=== PATIENT | female | born 1950 | race Caucasian/White ===

== ENCOUNTER 2022-03-10 02:06 | Emergency (ER) | payer MEDICARE, SELFPAY ==
[2022-03-10 02:12] VITALS: BP 168/77; PULSE 66; RESP 17; TEMP 36.6; O2SAT 97; BMI 19.8
--- NOTE | 2022-03-10 02:22 | ED_ITS ---
HPI - General Adult General Chief complaint: Head Injury Stated complaint: fell and hit head Time Seen by Provider: 03/10/22 02:21 History of Present Illness HPI narrative: 71-year-old woman with no reported medical history visiting her children from [facility]. Apparently had 2 cocktails this evening bend over to hold her dog and then fell backward landing on her head and she has approximately 4 cm laceration to the crown of the head. She does have some midline cervical sp ine tenderness to palpation however she says this is chronic although she is slightly intoxicated. She has no other signs of injury a or complaints of musculoskeletal pain. She states that she has otherwise been well with no recent fever, cough, chills, chest pain, palpitations. She is not complaining of headache. Her family notes there was quite a bit of bleeding from the laceration to the crown. Related Data Allergies Allergy/AdvReac Type Severity Reaction Status Date / Time No Known Drug Allergies Allergy Verified 03/10/22 02:29 Review of Systems Review of Systems Narrative: Remainder of complete review of systems is otherwise unremarkable except for that included in the HPI. Patient History Social History Smoking Status: Never smoker Exam Initial Vital Signs Initial Vital Signs: Vital Signs Temperature 97.8 F 03/10/22 02:12 Pulse Rate 66 03/10/22 02:12 Respiratory Rate 17 03/10/22 02:12 Blood Pressure 168/77 H 03/10/22 02:12 Pulse Oximetry 97 03/10/22 02:12 Oxygen Delivery Method 03/10/22 02:12 General: Slightly disheveled but in no acute distress. Able to give a complete and coherent history. Well-nourished well-developed HEENT: Moist mucous membranes, normal sclera with reactive pupils, 6 cm laceration to the crown Neck: No midline cervical tenderness. She does have some chronic tenderness at the occipital insertions bilaterally R espiratory: Lungs are clear to auscultation, no wheezing no rales no rhonchi. Full and symmetrical air movement Cardiac: Regular rate and rhythm no murmurs no bruits Abdomen: Soft, nontender, good bowel tones, no flank pain Skin: Warm and dry, no rashes Neurologic: Grossly neurologically intact with no obvious asymmetries or abnormalities Extremities: No trauma, well perfused Psych: Cooperative, appropriate insight and affect Procedures Laceration Repair Scalp laceration: Time of procedure: 03:21 Site: scalp Size (cm): 6 Description: flap Depth: simple, single layer Local Anesthetic: lidocaine 1% and with epi Amount of anesthesia used (mL): 5 Pre-repair: wound explored and deep structures intact Skin layer closed with: rayray Number of sutures: 6 Course Orders Ordered: ED Orders 03/10/22 02:41 CT head/brain wo con Stat Vital Signs Vital signs: Vital Signs - 8 hr 03/10/22 02:12 Temperature 97.8 F Pulse Rate 66 Respiratory Rate 17 Blood Pressure 168/77 H Pulse Oximetry 97 Oxygen Delivery Method Room Air Medical Decision Making Medical Records Medical records narrative: 71-year-old woman with a mechanical fall landing on the crown of her head, [address] scan is unremarkable. She is feeling well at this time. The laceration was repaired with 6 rayray which she tolerated nicely. She will be returning home to [facility] will ask her to have the rayray out on or about March 20. There is no evidence of additional trauma and she is safe for home discharge Imaging Data CT scan - head: My Impression: No acute intracranial hemorrhage, no subdural or subarachnoid bleeding. MDM Narrative Medical decision making narrative: 71-year-old woman with mechanical fall. Laceration to the crown of her head. CT scan is unremarkable, no other trauma, laceration is repaired with rayray. Questions are answered and she is safe for home discharge Discharge Plan Departure Patient Disposition: Home Clinical Impression: Laceration of scalp Qualifiers: Encounter type: initial encounter Qualified Code(s): S01.01XA - Laceration without foreign body of scalp, initial encounter Instructions: DI for Laceration Repair of the Scalp Activity Restrictions/Additional Instructions: Thank you for coming in this evening Fortunately you did not do any additional damage beside the cut to the top of your scalp. The laceration is 6 cm long and has 6 rayray in it. The rayray will need to come out on or about March 20. You can go to a walk-in clinic or your primary care doctor's office to have them removed. I would recommend getting into the shower before you go to bed this evening. You need to wash off the rest of the blood in the clot that a stocking your hair. Avoid using shampoo tonight because it will be staying. Simply hat the lacerated area dry. You will likely want to use a towel over a pillow this evening because there will probably be a bit of seeping from the area. Using 400 mg of ibuprofen (2 [id number] pills) and 1 Tylenol every 6 hours can be very helpful in controlling pain. If you find that you are getting worse or develop any new symptoms, please feel free to return to the emergency department for further evaluation.
--- NOTE | 2022-03-10 02:41 | DI.CT.S_ITS ---
PROCEDURE: CT HEAD/BRAIN WO CON INDICATIONS: ETOH, fall, hit head TECHNIQUE: Noncontrast 4.5 mm thick angled axial sections acquired from the foramen magnum to the vertex, with coronal and sagittal reformats. For radiation dose reduction, the following was used: automated exposure control, adjustment of mA and/or kV according to patient size. COMPARISON: None. FINDINGS: Image quality: Excellent. CSF spaces: Basal cisterns are patent. No extra-axial fluid collections. The ventricles are symmetric in size and shape. Brain: No intracranial bleeds or masses. There is cerebral volume loss for age, with resultant ventricular and sulcal prominence. There are moderate periventricular and deep white matter chronic small vessel ischemic changes. There is intracranial internal carotid artery atherosclerosis. Skull and face: Calvarium and visualized facial bones appear intact, without suspicious lesions. There is left parietal scalp laceration/contusion. Sinuses: Visualized sinuses and mastoids are clear. IMPRESSION: 1. No acute intracranial abnormalities. 2. Cerebral volume loss and chronic microvascular ischemic changes. No significant discrepancy with the loan reviewer radiology preliminary report. Dictated by: Anjelica Corona M.D. on 03/10/2022 at 7:51 Approved by: Anjelica Corona M.D. on 03/10/2022 at 7:53
[2022-03-10] MEDS: LIDOCAINE 2% W/EPI INJ 20 ML (03:52)
[2022-03-10] MEDS: ACETAMINOPHEN 325 MG TABLET 650 MG PO (03:53)
[2022-03-10] MEDS: IBUPROFEN 400 MG TABLET PO (03:53)
[2022-03-10 04:19] VITALS: BP 139/83; PULSE 68; RESP 17; O2SAT 96
== END 2022-03-10 03:55 | disposition home or self-care (01) ==
PROVIDERS: Emergency Provider Emergency Medicine
DX: S01.01XA Laceration without foreign body of scalp, initial encounter (principal); W19.XXXA Unspecified fall, initial encounter
CPT/HCPCS: 12002; 70450; 99283; 99284